=== PATIENT | female | born 1950 | race Caucasian/White ===

== ENCOUNTER 2023-02-04 11:22 | Day surgery (SDC) | payer MEDICARE, OTHER ==
[2023-02-04] MEDS ORDERED: LIDOCAINE HCL 1% 50 MG/5 ML VL PF IJ ONE (11:23)
[2023-02-04] MEDS ORDERED: Decadron 4 MG INJ IV ONE (11:23)
[2023-02-04] MEDS ORDERED: DIPRIVAN 200 MG/20 ML IV ONE (13:15)
[2023-02-04] MEDS ORDERED: Lactated Ringers 1,000 ML IV ONE (14:17)
--- NOTE | 2023-02-04 23:30 | XRAY ---
12 seconds of fluoroscopy was used in surgery for a right piriformis injection.
--- NOTE | 2023-02-04 23:30 | XRAY ---
Indication: Right piriformis injection. Intraoperative fluoroscopy provided for 12 seconds. Single digital spot image submitted for interpretation demonstrates posterior needle tip projecting over the right piriformis. Small amount of contrast injected for needle tip placement. Correlate with intraoperative findings/report.
== END 2023-02-04 13:45 | disposition home or self-care (01) ==
LOC: SDC-PAIN 11:22
PROVIDERS: ATTEND Psychiatry & Neurology Pain Medicine
DX: M79.18 Myalgia, other site (principal)
CPT/HCPCS: 20553; 72170; 77002; 99100; J1100; J2001; J2704; Q9966